=== PATIENT | female | born 1960 | race Caucasian/White ===

== ENCOUNTER → 2016-09-12 | Outpatient (CLI) | payer OTHER ==
[~2016-09-12] MED LIST: ASCA500 PO; CHOL200010 PO; CLON0.5T3 PO; ESOM20CA PO; MAGN250T22 PO; MULT-506 PO
--- NOTE | 2016-09-12 09:52 | DIAGNOSTIC IMAGING REPORT ---
CHEST 2 VIEWS ROUTINE CLINICAL HISTORY: Atypical chest pain COMPARISON STUDY: 03/25/2015 FINDINGS: The cardiac and mediastinal contours are normal. There is no evidence of focal pulmonary consolidation. There is no evidence of failure. No pleural effusions are visualized.[ IMPRESSION: No active disease in the chest. Electronically signed by: Augie Gillespie M.D. 09/12/2016 9:51 AM Dictated Date/Time: 09/12/2016 9:51 AM
== END | disposition home or self-care (01) ==
LOC: C.RADBC 09:37
PROVIDERS: ATTEND Family Medicine
DX: R07.89 Other chest pain (principal)

== ENCOUNTER 2016-10-24 08:18 | Emergency (ER) | payer OTHER ==
[~2016-10-24] VITALS: Ht 162.6 cm; Wt 87.0 kg
[~2016-10-24 08:18] MED LIST changes: -CHOL200010 PO; -CLON0.5T3 PO; -ESOM20CA PO
[2016-10-24 08:20] VITALS: TEMP 36.7; Ht 162.6 cm; Wt 87.0 kg
[2016-10-24] MEDS ORDERED: SODIUM CHLORIDE 0.9% 1000ML 1,000 ML IV STA (08:40)
[2016-10-24] MEDS ORDERED: CLON0.5T3 PO (08:42)
[2016-10-24] MEDS ORDERED: ESOM20CA PO (08:42)
--- NOTE | 2016-10-24 08:46 | EMERGENCY ROOM VISIT NOTE ---
History First contact with patient: 08:24 Chief Complaint: CHEST PAIN Stated Complaint: CHEST PAIN Nursing Triage Summary: Patient c/o left sided chest pain that goes into her back since yesterday. Patient increases with some movements. History of Present Illness The patient is a 55 year old female who presents to the Emergency Room with complaints of chest pain. The patient states that she developed chest pain yesterday morning. She states the pain is in the left side of the chest and radiates into her back and left side of the neck. The patient states the pain is constant. She states that this morning when she got up she could feel her heart pounding. The patient states that she has been physically active recently. She states she has also had worsening GERD. She has been taking Nexium. The patient rates her discomfort a 6/10. She denies any fevers, chills , earache, sore throat or cough. She denies any abdominal pain, nausea or vomiting. She denies any numbness, tingling or weakness. The patient has had a normal stress test approximately 2 years ago. Review of Systems A 10 system review of systems was completed with positives and pertinent negatives listed in the HPI. Past Medical/Surgical History Medical Problems: (1) GERD (gastroesophageal reflux disease) (2) Ulcer Surgical Problems: (1) History of hysterectomy (2) History of removal of both ovaries (3) History of tonsillectomy Family History Diabetes mellitus FH: cancer FH: heart disease Hypertension Kidney stones Social History Smoking Status: Former Smoker Marital Status: Housing Status: lives with family Occupation Status: employed Current/Historical Medications Scheduled Cholecalciferol (Vitamin D), 5,000 UNIT PO DAILY Clonazepam (Klonopin), 0.25 MG PO UD Esomeprazole Magnesium (Nexium), 20 MG PO DAILY Allergies Uncoded Allergies: enviromental (Allergy, Unknown, , 10/24/16) Physical Exam Vital Signs Date Time Temp Pulse Resp B/P Pulse Ox O2 Delivery O2 Flow Rate FiO2 10/24/16 12:42 85 16 127/62 94 10/24/16 12:21 87 10/24/16 12:20 85 16 127/62 94 Room Air 10/24/16 10:35 67 20 103/94 97 Room Air 10/24/16 09:35 68 19 123/100 100 Room Air 10/24/16 08:32 81 10/24/16 08:20 36.7 107 16 142/88 100 Room Air Physical Exam VITALS: Vitals are noted on the nurse's note and reviewed by myself. Vital signs stable. The patient is afebrile. GENERAL: This is a 55-year-old female, in no acute distress, nondiaphoretic, well-developed well-nourished. SKIN: The skin was without rashes, erythema, edema, or bruising. There is no tenting of the skin. Capillary reflex less than 2 seconds. HEAD: Normocephalic atraumatic. EARS: External auditory canals clear, tympanic membranes pearly glasgow without erythema or effusion bilaterally. EYES: Pupils equal round and reactive to light and accommodation. Conjunctivae without injection, sclerae without icterus. Extraocular movements intact. NOSE: Patent, turbinates without inflammation or discharge. MOUTH: Mucous membranes moist. Tonsils are not enlarged. Pharynx without erythema or exudate. Uvula midline. Airway patent. Tongue does not deviate. NECK: Supple without nuchal rigidity. No lymphadenopathy. No thyromegaly. Cervical spine is nontender. No JVD. HEART: Regular rate and rhythm without murmurs gallops or rubs. Mild tenderness to palpation of chest wall. LUNGS: Clear to auscultation bilaterally without wheezes, rales or rhonchi. No retractions or accessory muscle use. ABDOMEN: Positive bowel sounds x 4. Soft, nontender, without masses or organomegaly. MUSCULOSKELETAL: No muscle atrophy, erythema, or edema noted. Full range of motion in all extremities. Normal gait. Strength 5/5 throughout. NEURO: Patient was alert and oriented to person place and time. No focal neurological deficits. Medical Decision & Procedures ER Provider Diagnostic Interpretation: [~ rep ct add3]] CHEST ONE VIEW PORTABLE CLINICAL HISTORY: chest pain dyspnea COMPARISON STUDY: 09/12/2016 FINDINGS: The bones soft tissues and hemidiaphragms are normal. The cardiomediastinal silhouette is normal. The lungs are clear. The pulmonary vasculature is normal. IMPRESSION: Negative chest. Laboratory Results 10/24/16 08:36 Red Blood Count 5.06, Mean Corpuscular Volume 84.2, Mean Corpuscular Hemoglobin 29.8, Mean Corpuscular Hemoglobin Concent 35.4, Mean Platelet Volume 10.1, Neutrophils (%) (Auto) 55.3, Lymphocytes (%) (Auto) 34.7, Monocytes (%) (Auto) 7.8, Eosinophils (%) (Auto) 1.8, Basophils (%) (Auto) 0.2, Neutrophils # (Auto) 3.05, Lymphocytes # (Auto) 1.91, Monocytes # (Auto) 0.43, Eosinophils # (Auto) 0.10, Basophils # (Auto) 0.01 10/24/16 08:36 Test 10/24/16 08:36 10/24/16 10:13 10/24/16 10:52 White Blood Count 5.51 K/uL (4.8-10.8) Red Blood Count 5.06 M/uL (4.2-5.4) Hemoglobin 15.1 g/dL (12.0-16.0) Hematocrit 42.6 % (37-47) Mean Corpuscular Volume 84.2 fL (80-100) Mean Corpuscular Hemoglobin 29.8 pg (25-34) Mean Corpuscular Hemoglobin Concent 35.4 g/dl (32-36) Platelet Count 226 K/uL (130-400) Mean Platelet Volume 10.1 fL (7.4-10.4) Neutrophils (%) (Auto) 55.3 % Lymphocytes (%) (Auto) 34.7 % Monocytes (%) (Auto) 7.8 % Eosinophils (%) (Auto) 1.8 % Basophils (%) (Auto) 0.2 % Neutrophils # (Auto) 3.05 K/uL (1.4-6.5) Lymphocytes # (Auto) 1.91 K/uL (1.2-3.4) Monocytes # (Auto) 0.43 K/uL (0.11-0.59) Eosinophils # (Auto) 0.10 K/uL (0-0.5) Basophils # (Auto) 0.01 K/uL (0-0.2) RDW Standard Deviation 37.8 fL (36.4-46.3) RDW Coefficient of Variation 12.5 % (11.5-14.5) Immature Granulocyte % (Auto) 0.2 % Immature Granulocyte # (Auto) 0.01 K/uL (0.00-0.02) Prothrombin Time 10.4 SECONDS (9.0-12.0) Prothromb Time International Ratio 1.0 (0.9-1.1) Activated Partial Thromboplast Time 27.8 SECONDS (21.0-31.0) Partial Thromboplastin Ratio 1.1 Anion Gap 9.0 mmol/L (3-11) Est Creatinine Clear Calc Drug Dose 76.3 ml/min Estimated GFR () 84.6 Estimated GFR (Non- 73.0 BUN/Creatinine Ratio 18.1 (10-20) Calcium Level 9.3 mg/dl (8.5-10.1) Total Bilirubin 0.5 mg/dl (0.2-1) Aspartate Amino Transf (AST/SGOT) 19 U/L (15-37) Alanine Aminotransferase (ALT/SGPT) 48 U/L (12-78) Alkaline Phosphatase 95 U/L (45-117) Troponin I < 0.015 ng/ml (0-0.045) Total Protein 7.7 gm/dl (6.4-8.2) Albumin 4.2 gm/dl (3.4-5.0) Globulin 3.5 gm/dl (2.5-4.0) Albumin/Globulin Ratio 1.2 (0.9-2) Lipase 93 U/L (73-393) Thyroid Stimulating Hormone (TSH) 1.860 uIu/ml (0.300-4.500) Bedside Troponin I 0.000 ng/ml (0-0.045) Urine Color YELLOW Urine Appearance CLEAR (CLEAR) Urine pH 6.0 (4.5-7.5) Urine Specific Britt 1.010 (1.000-1.030) Urine Protein NEG (NEG) Urine Glucose (UA) NEG (NEG) Urine Ketones NEG (NEG) Urine Occult Blood NEG (NEG) Urine Nitrite NEG (NEG) Urine Bilirubin NEG (NEG) Urine Urobilinogen NEG (NEG) Urine Leukocyte Esterase TRACE (NEG) Urine WBC (Auto) 1-5 /hpf (0-5) Urine RBC (Auto) 0-4 /hpf (0-4) Urine Hyaline Casts (Auto) 0 /lpf (0-5) Urine Epithelial Cells (Auto) 10-20 /lpf (0-5) Urine Bacteria (Auto) NEG (NEG) Medications Administered Medications (Trade) Dose Ordered Sig/Arturo Route Start Time Stop Time Status Last Admin Dose Admin Sodium Chloride (Nss 1000ml) 1,000 ml @ 999 mls/hr Q1H1M STAT IV 10/24/16 08:40 10/24/16 09:40 DC 10/24/16 08:45 999 MLS/HR Procedure The patient was monitored on a youth nutritional monitor. They maintained a normal sinus rhythm without ectopy. ECG Indication: chest pain Rate (beats per minute): 77 Rhythm: normal sinus Findings: no acute ischemic change Change: no significant change ED Course The patient was seen and examined. Previous visits were reviewed. The patient does not have a fever or leukocytosis. She does not have any significant electrolyte abnormality. Troponin and 90 minute troponin were negative. Lipase was not elevated. TSH was within normal limits. INR is 1.0. Urinalysis suggests contamination. Chest x-ray does not reveal any acute abnormality The patient was hydrated with normal saline. The patient has had left-sided chest pain that radiates into her neck and back. The pain is reproducible with palpation but not with movement. The patient reports a family history of cardiac disease. Given the fact that the pain started yesterday, has been constant and she has had negative troponin this is less likely to represent cardiac chest pain. I suspect this may be musculoskeletal in nature. The patient however was advised to have very close follow-up. The patient was concerned with the chest pain and her family's history. I did briefly speak with Dr. Adams for possible stress test. The patient was sent for stress echocardiogram which was negative. The patient should contact her family doctor to schedule a follow-up appointment for further evaluation and management. She should return with any worsening symptoms. The case was discussed with Dr. Camp who agrees with the assessment and treatment plan Medical Decision DIFFERENTIAL DIAGNOSIS: Aortic dissection, myocarditis, pericarditis, cervical disc disease, costochondritis, herpes zoster, rib fracture, pleuritis, pneumonia , pulmonary embolus, tension pneumothorax, anxiety disorder, somatoform disorder , choledocholithiasis, status, esophagitis, esophageal spasm, esophageal reflux , esophageal rupture, pancreatitis, peptic ulcer disease, cardiac ischemia, ST elevation [place], acute coronary syndrome, arrhythmia, coronary artery vasospasm. vavular heart disease, coronary artery disease, among others. Impression Primary Impression: Substernal precordial chest pain Additional Impression: Chest wall pain Departure Information Dispostion Home / Self-Care Condition GOOD Referrals Kiko, Raul R., DO (PCP) Patient Instructions ED Strain Chest Wall, [facility] Additional Instructions Motrin 600mg every 6-8 hours for pain/inflammation for the next 5-7 days Avoid vigorous activity for the next 5-7 days Contact your family doctor for further evaluation and management Return with worsening symptoms Problem Qualifiers
[2016-10-24 08:55] LABS: BASO % 0.2 %; BASO ABS # 0.01 K/uL (0-0.2); COMPLETE YES; EOS % 1.8 %; HEMATOCRIT 42.6 % (37-47); IG% 0.2 %; LYMPH % 34.7 %; LYMPH ABS # 1.91 K/uL (1.2-3.4); MEAN CELL VOLUME 84.2 fL (80-100); MEAN CORPUSCULAR HEMOGLOBIN 29.8 pg (25-34); MEAN CORPUSCULAR HGB CONC 35.4 g/dl (32-36); MEAN PLATELET VOLUME 10.1 fL (7.4-10.4); MONO % 7.8 %; NEUT % 55.3 %; PLATELET COUNT 226 K/uL (130-400); RED BLOOD COUNT 5.06 M/uL (4.2-5.4); WHITE BLOOD COUNT 5.51 K/uL (4.8-10.8)
[2016-10-24 09:05] LABS: PARTIAL THROMBOPLASTIN RATIO 1.1; PROTHROMBIN TIME (PATIENT) 10.4 SECONDS (9.0-12.0)
--- NOTE | 2016-10-24 09:05 | DIAGNOSTIC IMAGING REPORT ---
CHEST ONE VIEW PORTABLE CLINICAL HISTORY: chest pain dyspnea COMPARISON STUDY: 09/12/2016 FINDINGS: The bones soft tissues and hemidiaphragms are normal. The cardiomediastinal silhouette is normal. The lungs are clear. The pulmonary vasculature is normal. IMPRESSION: Negative chest. Electronically signed by: Eric Gregory M.D. 10/24/2016 9:04 AM Dictated Date/Time: 10/24/2016 9:04 AM
[2016-10-24 09:10] LABS: ALT/SGPT 48 U/L (12-78); BLOOD UREA NITROGEN 16 mg/dl (7-18); BUN/CREATININE RATIO 18.1 (10-20); CALCIUM 9.3 mg/dl (8.5-10.1); CARBON DIOXIDE 28 mmol/L (21-32); CHLORIDE 103 mmol/L (98-107); CREATININE 0.89 mg/dl (0.60-1.20); GLUCOSE 98 mg/dl (70-99); POTASSIUM 4.1 mmol/L (3.5-5.1); SODIUM 140 mmol/L (136-145)
[2016-10-24 09:20] LABS: ALB/GLOB RATIO 1.2 (0.9-2); ALKALINE PHOSPHATASE 95 U/L (45-117); AST/SGOT 19 U/L (15-37)
[2016-10-24 11:59] LABS: URINE APPEARANCE CLEAR (CLEAR); URINE BILIRUBIN NEG (NEG); URINE COLOR YELLOW; URINE NITRITE NEG (NEG); UROBILINOGEN NEG (NEG); ZZUR CULT IF INDIC CLEAN CATCH NO
[2016-10-24 12:12] LABS: MANUAL MICROSCOPIC REQUIRED? NO; REVIEW REQ? NO
--- NOTE | 2016-10-24 12:40 | EXERCISE STRESS ECHO ---
*NOTICE TO RECEIVING CONSTITUTION PARTY AGENCY This information is strictly Confidential and protected under [place] law. [place] law prohibits you from making any further disclosure of this information unless further disclosure is expressly permitted by the written consent of the person to whom it pertains or is authorized by law. A general authorization for the release of medical or other information is not sufficient for this purpose. Hospital accepts no responsibility if the information is made available to any other person, INCLUDING THE PATIENT. Interpretation Summary * Name: SANTIAGO FRYE Study Date: 10/24/2016 10:56 AM BP: 121/76 mmHg * Patient Location: ED HR: 67 * : 1960 (M/d/yyyy) Gender: Female Height: 64 in * Age: 55 yrs Ethnicity: CA Weight: 191 lb * Ordering Physician: Laure Leone * Performed By: Sneha Toney * * Reason For Study: Chest pain * BSA: 1.9 m2 * -- Conclusions -- * Normal stess echocardiogram at 10.1 METS and a peak heart rate of 96% maximum predicted. * No exercise induced chest pain. * No ECG changes. * Baseline echocardiogram notes normal left ventricular systolic function without wall motion abnormalities. Procedure Details * ECHOEX, CPT #73266 * A contrast injection of Definity was performed to improve assessment of LV function. * Contrast was injected into an intravenous site in the right arm. * One vial of Definity ultrasound contrast was diluted in normal saline to a total volume of 10 ml. A total of '4.5' ml of solution was administered during imaging. * Lot # [id number] of Definity utilized for procedure. * Expiration date 11/08. * The attending nurse who injected the contrast agent was DIANE MIGUEL RN. Left Ventricle * Left ventricular systolic function is normal. * Resting wall motion: Normal. Stress wall motion: Appropriate increase in Left ventricular systolic function and decrease in cavity size. No stress induced segmental wall motion abnormalities. Stress Parameters * Normal baseline electrocardiogram. * Stress ECG: No ST changes. No arrhythmias. * The stress portion of this study was personally supervised by the undersigned interpreting physician. * Rest heart rate was '67' BPM. * Rest blood pressure was '121/76' * Maximum heart rate achieved was 160 bpm. * Maximum heart rate was 96 % of maximum age-predicted heart rate. * Maximum blood pressure was '171/62' * Total exercise time was '8:00' * Maximum exercise MET level achieved was '10.1' METS * Maximum treadmill speed was '3.40' miles per hour. * Maximum treadmill elevation was '14.00'% grade. * Exercise was terminated due to 'target heart rate achieved.' * The patient exhibited chest pain during exercise. * Normal blood pressure response to exercise.
[2016-10-24 12:42] VITALS: BP 127/62; PULSE 85; O2SAT 94
[2016-10-24] MEDS ORDERED: CHOL200010 PO (20:06)
== END 2016-10-24 12:45 | disposition home or self-care (01) ==
LOC: C.EDB 08:19
DX: R07.2 Precordial pain (principal); R07.89 Other chest pain; Z87.891 Personal history of nicotine dependence

== ENCOUNTER → 2016-11-08 | Outpatient (CLI) | payer OTHER ==
[~2016-11-08] MED LIST changes: -ASCA500 PO; +CHOL200010 PO; +CLON0.5T3 PO; +ESOM20CA PO; -MAGN250T22 PO; -MULT-506 PO
--- NOTE | 2016-11-09 13:55 | MAMMOGRAPHY REPORT ---
BILATERAL DIGITAL SCREENING MAMMOGRAM TOMOSYNTHESIS WITH CAD: 11/08/2016 CLINICAL HISTORY: Routine screening. Patient has no complaints. TECHNIQUE: Breast tomosynthesis in addition to standard 2D mammography was performed. Current study was also evaluated with a Computer Aided Detection (CAD) system. COMPARISON: Comparison is made to exams dated: 10/08/2015 mammogram, 10/11/2013 mammogram, 04/10/2013 mammogram, 10/08/2012 mammogram, 10/01/2012 mammogram, and 10/08/2012 ultrasound - [facility]. BREAST COMPOSITION: There are scattered areas of fibroglandular density in both breasts. FINDINGS: There is stable nodularity in the breasts. Scattered stable benign-appearing rounded punc flood microcalcifications. No suspicious mass, architectural distortion or cluster of new, suspiciou s microcalcifications is seen. IMPRESSION: ACR BI-RADS CATEGORY 1: NEGATIVE There is no mammographic evidence of malignancy. A 1 year screening mammogram is recommended. The p atient will receive written notification of the results. Approximately 10% of breast cancers are not detected with mammography. A negative mammographic repor t should not delay biopsy if a clinically suggestive mass is present. Kassie Lynch M.D. ay/:11/08/2016 17:55:44 [employer] And [employer] Supervisor: Geovanna STRAUSS)([place]), [facility] letter sent: Normal 1/2 BI-RADS Code: ACR BI-RADS Category 1: Negative
== END | disposition home or self-care (01) ==
LOC: C.MAMM 09:33
PROVIDERS: ATTEND Obstetrics & Gynecology
DX: Z12.31 Encounter for screening mammogram for malignant neoplasm of breast (principal)

== ENCOUNTER → 2017-01-25 | Day surgery (SDC) | payer OTHER ==
[2017-01-17 08:02] VITALS: Ht 162.6 cm; Wt 84.1 kg
[~2017-01-25] VITALS: Ht 162.6 cm; Wt 84.1 kg
[~2017-01-25] MED LIST changes: +LIDOCAINE HCL 2% 2 ML VIAL (20MG/ML) ONE; +PHENYLEPHRINE HCL INJ 10 MG/ML VIAL ONE; +PROPOFOL IV EMULSION 10 MG/ML 20 ML VIAL IV ONE; +SODIUM CHLORIDE 0.9% 500ML 500 ML IV ONE
--- NOTE | 2017-01-25 13:46 | Endo History and Physical ---
History & Physical Date of Service: Jan 25, 2017. Chief Complaint: GERD Referring Physician: Dr. Raul Hoover History of Present Illness 56 yo CF who presents for EGD secondary to GERD. Past Surgical History Hx Cardiac Surgery: No Hx Internal Defibrillator: No Hx Pacemaker: No Hx Abdominal Surgery: Yes (HYSTERECTOMY (2003); BL OOPHORECTOMY (04/2012)) Hx Post-Op Nausea and Vomiting: No Hx Cancer Surgery: No Hx Thoracic Surgery: No Hx Orthopedic: No Hx Urinary Tract Surgery: No Family History None Social History Smoking Status: Never Smoker Hx Substance Use: No Hx Alcohol Use: Yes (2 to 3 drinks a week) Allergies Coded Allergies: NO KNOWN DRUG ALLERGIES (Verified Allergy, Mild, ., 01/17/17) Uncoded Allergies: enviromental (Allergy, Unknown, , 10/24/16) Current Medications Reported Home Medications Medications Dose Route/Sig Max Daily Dose Days Date Category Klonopin (Clonazepam) 0.5 Mg Tab 0.25 Mg PO BID 10/24/16 Reported Nexium (Esomeprazole Magnesium) 20 Mg Capcr 20 Mg PO QAM 10/24/16 Reported Vitamin D (Cholecalciferol) 2,000 Unit Cap 5,000 Unit PO QAM 02/11/14 Reported Vital Signs Weight (Kilograms): 84.09 Height (Feet): 5 Height (Inches): 4 Date Time Temp Pulse Resp B/P (MAP) Pulse Ox O2 Delivery O2 Flow Rate FiO2 01/25/17 13:35 36.7 97 18 139/75 (96) 100 Room Air Physical Exam General Appearance: WD/WN, no apparent distress Respiratory/Chest: Auscultation: breath sounds normal Cardiovascular: Heart Auscultation: RRR Abdomen: Bowel Sounds: normal Inspection & Palpation: soft, non-distended, no tenderness, guarding & rebound Assessment and Plan Assessment: 56 yo CF who presents for EGD secondary to GERD. Plan: Proceed with EGD.
--- NOTE | 2017-01-25 14:29 | Discharge Instructions ---
Endoscopy Patient Instructions Date / Procedure(s) Performed Jan 25, 2017. EGD Allergy Information Coded Allergies: NO KNOWN DRUG ALLERGIES (Verified Allergy, Mild, ., 01/17/17) Uncoded Allergies: enviromental (Allergy, Unknown, , 10/24/16) Discharge Date / Findings Jan 25, 2017. Hiatal hernia Medication Instructions OK to resume all medications today as prescribed Reported Home Medications Medications Dose Route/Sig Max Daily Dose Days Date Category Klonopin (Clonazepam) 0.5 Mg Tab 0.25 Mg PO BID 10/24/16 Reported Nexium (Esomeprazole Magnesium) 20 Mg Capcr 20 Mg PO QAM 10/24/16 Reported Vitamin D (Cholecalciferol) 2,000 Unit Cap 5,000 Unit PO QAM 02/11/14 Reported Provider Instructions Activity Restrictions - No exercising or heavy lifting for 24 hours. - Do not drink alcohol the day of the procedure. - Do not drive a car or operate machinery until the day after the procedure. - Do not make any important decisions or sign important papers in 24 hours after the procedure. Following Day: - Return to full activity which may include returning to work/school. Diet Start your diet with liquids and light foods (jello, soup, juice, toast). Then eat your usual diet if not nauseated. Treatment For Common After Affects For mild abdominal pain, bloating, or excessive gas: - Rest - Eat lightly - Lie on right side Follow-Up Information Follow-up with Dr. Raul Hoover as scheduled Anesthesia Information What You Should Know You have had a procedure that required some medicine to reduce anxiety and discomfort. This treatment is called moderate sedation. After receiving the treatment, you may be sleepy, but you will be able to breathe on your own. The effects of the treatment may last for several hours. Follow these instructions along with Activity/Diet recommendations noted above: * Do NOT do anything where dizziness or clumsiness would be dangerous. * Rest quietly at home today, then you can be up and about tomorrow. * Have a responsible person stay with you the rest of today. * You may have had an I.V. today. If so, you may take the dressing off later today. Recommendations Call your doctor if: * Trouble breathing * Continuous vomiting for more than 24 hours * Temperature above 101 degrees * Severe abdominal pain or bloating * Pain not relieved by pain medicine ordered * There is increased drainage or redness from any incision * A large amount of rectal bleeding greater than 2-3 tablespoons. (If you had a polyp/s removed or have hemorrhoids, a small amount of blood - from the rectum is to be expected.) * You have any unanswered questions or concerns. IN THE EVENT OF A SERIOUS EMERGENCY, GO TO THE NEAREST EMERGENCY ROOM Your discharge instructions were prepared by provider Stevie Romero. Patient Instructions Signature Page Jenise Wilkins Patient (or Guardian) Signature/Date: I have read and understand the instructions given to me by my caregivers. Caregiver/RN/Doctor Signature/Date: The above-named patient and/or guardian has received patient instructions on this date. + Original Patient Signature Page (only) stays with chart. Please make copy for patient.
--- NOTE | 2017-01-25 14:31 | Anesthesiology Progress Note ---
Anesthesia Post Op Note Date & Time Jan 25, 2017 at 14:31 Vital Signs Pain Intensity: 0 Vital Signs Past 12 Hours Date Time Temp Pulse Resp B/P (MAP) Pulse Ox O2 Delivery O2 Flow Rate FiO2 01/25/17 13:35 36.7 97 18 139/75 (96) 100 Room Air Notes Mental Status: alert / awake / arousable, participated in evaluation Pt Amnestic to Procedure: Yes Nausea / Vomiting: adequately controlled Pain: adequately controlled Airway Patency, RR, SpO2: stable & adequate BP & HR: stable & adequate Hydration State: stable & adequate Anesthetic Complications: no major complications apparent
--- NOTE | 2017-01-25 14:39 | GI REPORT ---
Procedure Date: 01/25/2017 1:51 PM Procedure: Upper GI endoscopy Indications: Follow-up of gastro-esophageal reflux disease Medicines: Monitored Anesthesia Care Complications: No immediate complications. Estimated Blood Loss: Estimated blood loss: none. Procedure: Pre-Anesthesia Assessment: - Prior to the procedure, a History and Physical was performed, and patient medications and allergies were reviewed. The patient's tolerance of previous anesthesia was also reviewed. The risks and benefits of the procedure and the sedation options and risks were discussed with the patient. All questions were answered, and informed consent was obtained. Prior Anticoagulants: The patient has taken no previous anticoagulant or antiplatelet agents. ASA Grade Assessment: II - A patient with mild systemic disease. After reviewing the risks and benefits, the patient was deemed in satisfactory condition to undergo the procedure. After obtaining informed consent, the endoscope was passed under direct vision. Throughout the procedure, the patient's blood pressure, pulse, and oxygen saturations were monitored continuously. The scope was introduced through the mouth, and advanced to the second part of duodenum. The upper GI endoscopy was accomplished without difficulty. The patient tolerated the procedure well. Findings: The examined esophagus was normal. A large hiatus hernia was present. The examined duodenum was normal. Impression: - Normal esophagus. - Large hiatus hernia. - Normal examined duodenum. - No specimens collected. Recommendation: - Resume previous diet. - Continue present medications. - Do an upper GI series at appointment to be scheduled. - Return to GI office as previously scheduled. Stevie Romero, 01/25/2017 2:38:27 PM This report has been signed electronically. Note Initiated On: 01/25/2017 1:51 PM I attest to the content of the Intraoperative Record and orders documented therein, exceptions below
[2017-01-25 15:05] VITALS: BP 139/75; PULSE 69; O2SAT 97
== END | disposition home or self-care (01) ==
LOC: C.GI 13:16
PROVIDERS: ATTEND Internal Medicine
DX: K44.9 Diaphragmatic hernia without obstruction or gangrene (principal); K21.9 Gastro-esophageal reflux disease without esophagitis; Z79.899 Other long term (current) drug therapy

== ENCOUNTER → 2017-01-30 | Outpatient (CLI) | payer OTHER ==
[~2017-01-30] MED LIST changes: -LIDOCAINE HCL 2% 2 ML VIAL (20MG/ML) ONE; -PHENYLEPHRINE HCL INJ 10 MG/ML VIAL ONE; -PROPOFOL IV EMULSION 10 MG/ML 20 ML VIAL IV ONE; -SODIUM CHLORIDE 0.9% 500ML 500 ML IV ONE
--- NOTE | 2017-01-30 11:21 | DIAGNOSTIC IMAGING REPORT ---
(BARIUM SWALLOW) ESOPHAGUS CLINICAL HISTORY: 56 years-old Female presenting with diaphragmatic hernia, reported hiatal hernia and inflammation on endoscopy 1 week ago. TECHNIQUE: A standard air contrast barium esophagram is performed. Multiple spot images of the esophagus are acquired both upright and prone. COMPARISON: Upper GI from 04/03/2006. FINDINGS: The patient was able to ingest barium but unable to ingest the barium pill. No aspiration observed. Normal passage of the oral contrast through the esophagus into the stomach. Normal esophageal mucosal pattern. No evidence of intrinsic or extrinsic mass lesion. Small sliding hiatal hernia. The gastroesophageal junction distended normally. No gastroesophageal reflux observed. Fluoroscopy time: 1.1 minutes. Fluoroscopic images: 24. IMPRESSION: 1. Small hiatal hernia. 2. No aspiration or other abnormality. The patient was unable to ingest the barium pill for assessment of passage. Electronically signed by: Dimas Martin 01/30/2017 11:20 AM Dictated Date/Time: 01/30/2017 11:17 AM
== END | disposition home or self-care (01) ==
LOC: C.RAD 10:39
PROVIDERS: ATTEND Internal Medicine
DX: K44.9 Diaphragmatic hernia without obstruction or gangrene (principal)

== ENCOUNTER → 2017-11-14 | Outpatient (CLI) | payer OTHER ==
--- NOTE | 2017-11-15 15:29 | MAMMOGRAPHY REPORT ---
BILATERAL DIGITAL SCREENING MAMMOGRAM TOMOSYNTHESIS WITH CAD: 11/14/2017 CLINICAL HISTORY: Routine screening. TECHNIQUE: Breast tomosynthesis in addition to standard 2D mammography was performed. Current study was also evaluated with a Computer Aided Detection (CAD) system. COMPARISON: Comparison is made to exams dated: 11/08/2016 mammogram, 10/08/2015 mammogram, 10/11/2013 m ammogram, 10/01/2012 mammogram, 09/26/2011 mammogram, and 06/22/2010 mammogram - [facility] enter. BREAST COMPOSITION: There are scattered areas of fibroglandular density in both breasts. FINDINGS: There have been involutional changes comparing to more remote prior mammograms. There are scattered stable benign-appearing round and punctate microcalcifications in the breasts. Morphologic ally normal lymph nodes are seen projecting over each pectoralis muscle on the MLO views, which appea rs stable in size comparing to prior mammograms. No new suspicious mass, architectural distortion or cluster of microcalcifications is seen. IMPRESSION: ACR BI-RADS CATEGORY 1: NEGATIVE There is no mammographic evidence of malignancy. A 1 year screening mammogram is recommended. The pa tient will receive written notification of the results. Approximately 10% of breast cancers are not detected with mammography. A negative mammographic report should not delay biopsy if a clinically suggestive mass is present. Kassie Lynch M.D. ay/:11/14/2017 16:00:41 [employer] Telephone Clerk: Zaria LOMBARDO(Sheila)(Mele), [facility] letter sent: Normal 1/2 BI-RADS Code: ACR BI-RADS Category 1: Negative
== END | disposition home or self-care (01) ==
LOC: C.MAMM 09:35
PROVIDERS: ATTEND Obstetrics & Gynecology
DX: Z12.31 Encounter for screening mammogram for malignant neoplasm of breast (principal)

== ENCOUNTER → 2018-02-20 | Outpatient (CLI) | payer OTHER ==
[~2018-02-20] MED LIST changes: -CHOL200010 PO; -CLON0.5T3 PO; +ERGO500037 PO; -ESOM20CA PO; +KETO10TA PO; +KLN/5 PO; +OXYC-57 PO
[2018-02-20 10:10] LABS: BASO % 0.2 %; BASO ABS # 0.01 K/uL (0-0.2); EOS % 2.3 %; EOS ABS # 0.11 K/uL (0-0.5); HEMATOCRIT 44.8 % (37-47); HEMOGLOBIN 15.1 g/dL (12.0-16.0); IG# 0.01 K/uL (0.00-0.02); LYMPH ABS # 1.83 K/uL (1.2-3.4); MEAN CELL VOLUME 85.2 fL (80-100); MEAN CORPUSCULAR HEMOGLOBIN 28.7 pg (25-34); MEAN CORPUSCULAR HGB CONC 33.7 g/dl (32-36); MEAN PLATELET VOLUME 10.2 fL (7.4-10.4); MONO % 8.1 %; MONO ABS # 0.38 K/uL (0.11-0.59); NEUT % 50.2 %; NEUT ABS # 2.35 K/uL (1.4-6.5); PLATELET COUNT 232 K/uL (130-400); RED CELL DISTRIBUTION WIDTH CV 12.9 % (11.5-14.5); WHITE BLOOD COUNT 4.69 K/uL (4.8-10.8)
[2018-02-20 10:36] LABS: BLOOD UREA NITROGEN 16 mg/dl (7-18); CALCIUM 9.6 mg/dl (8.5-10.1); CARBON DIOXIDE 28 mmol/L (21-32); CREATININE 0.79 mg/dl (0.60-1.20); GLUCOSE 95 mg/dl (70-99); POTASSIUM 4.5 mmol/L (3.5-5.1); SODIUM 141 mmol/L (136-145)
== END | disposition home or self-care (01) ==
LOC: C.CPL 09:12
PROVIDERS: ATTEND Orthopaedic Surgery
DX: M75.00 Adhesive capsulitis of unspecified shoulder (principal)

== ENCOUNTER → 2018-02-22 | Day surgery (SDC) | payer OTHER ==
[2018-02-12 12:24] VITALS: Ht 163.8 cm; Wt 81.8 kg
[~2018-02-22] VITALS: Ht 163.8 cm; Wt 81.8 kg
[~2018-02-22] MED LIST changes: +ATROPINE SULFATE 0.1 MG/ML 5ML SYR IV PRN; +BUPIVACAINE 0.25% 30 ML VIAL ONE; +CEFAZOLIN 2000MG IV PUSH 15 ML IV SCH; +DEXAMETHASONE SOD INJ 4 MG/ML VIAL ONE; +EpHEDrine SULFATE INJ 50 MG/ML AMP IV PRN; +EpINEphrine INJ 1MG/ML AMP 1 MG/ML AMP ONE; +FENTANYL CITRATE INJ 50 MCG/1 ML 2 ML VIAL IV PRN; +FENTANYL CITRATE INJ 50 MCG/1 ML 2 ML VIAL ONE; +HYDROmorphone INJ 1 MG/ML SYR IV PRN; +KETOROLAC TROMETHAMINE 30 MG/ML VIAL IV. PRN; +LACTATED RINGER'S 1000ML 1,000 ML IV SCH; +LIDOCAINE HCL 2% 2 ML VIAL (20MG/ML) ONE; +METHYLPREDNISOLONE ACETATE 80 MG/ML VIAL ONE; +MIDAZOLAM HCL 1 MG/ML 2ML VIAL ONE; +ONDANSETRON INJ 2 MG/ML 2 ML VIAL IV PRN; +ONDANSETRON INJ 2 MG/ML 2 ML VIAL ONE; +OXYCODONE/ACETAMINOPHEN 5-325 TAB PO PRN; +PHENYLEPHRINE 100MCG/ML 5ML SYR IV PRN; +PROMETHAZINE HCL INJ 12.5 MG in SODIUM CHLORIDE 0.9% 50ML 50 ML IV PRN; +PROPOFOL IV EMULSION 10 MG/ML 20 ML VIAL ONE; +ROPIVACAINE 0.5% 5 MG/ML 30 ML VIAL ONE; +SODIUM CHLORIDE 0.9% 1000ML 1,000 ML IV SCH
--- NOTE | 2018-02-22 10:27 | History & Physical Bridge - SC ---
H&P Re-Evaluation Bridge Note: I have examined the patient, reviewed the History & Physical and in the interval since the performance of the History & Physical I have noted the following changes of clinical significance: No changes noted
--- NOTE | 2018-02-22 12:36 | [facility] Post Operative Brief Note ---
Immediate Operative Summary Operative Date Feb 22, 2018. Pre-Operative Diagnosis Right shoulder adhesive capsulitis Post-Operative Diagnosis Same as preop Procedure(s) Performed Right Shoudler Arthroscopy With Capsular Release Surgeon Dr. Coronel Station Attendant Surgeon(s) Leroy Rodriguez PA-C Estimated Blood Loss 5 mL Findings Consistent with Post-Op Diagnosis Specimens None Anesthesia Type General [facility]
--- NOTE | 2018-02-22 12:45 | Discharge Instructions-SurgCtr ---
Discharge Instructions Date of Service Feb 22, 2018. Visit Reason for Visit: Right Shoulder Adhesive Capsulitis Discharge Discharge Diagnosis / Problem: SAME ABOVE Discharge Goals Goal(s): Decrease discomfort, Improve function Activity Recommendations Activity Limitations: as noted below Lifting Limitations: until after follow-up appointment Shower/Bathe: tomorrow Anesthesia . Post Anesthesia Instructions: If you have had General Anesthesia or IV Sedation: * Do not drive today. * Resume driving when surgeon permits. * Do not make important decisions or sign legal documents today. * Call surgeon for: 1. Temperature elevations greater than 101 degrees F. 2. Uncontrollable pain. 3. Excessive bleeding. 4. Persistent nausea and vomiting. 5. Medication intolerance (nausea, vomiting or rash). * For nausea and vomiting use only clear liquids such as: tea, soda, bouillon until nausea subsides, then gradually increase diet as tolerated. * If you have any concerns or questions, call your surgeon's office. If physician is unavailable and it is an emergency, call 911 or go to the nearest emergency room. . Instructions / Follow-Up Instructions / Follow-Up MEDICATIONS: * Resume previous medications unless instructed otherwise by your surgeon. * Always take pain medication on a full stomach or with food to avoid upset stomach. * Do not drink alcohol or drive while taking narcotics. * Ibuprofen or Tylenol may be taken if narcotic not needed. SPECIAL CARE INSTRUCTIONS: __ None _X_ Keep extremity elevated and iced x 48 hours; apply ice 20-30 minutes 8-10 times/day. May remove at night. _X_ Sling (REMOVE AFTER 24 HOURS) __24 hrs/day __ Remove at night __ Shoulder Immobilizer __ 24 hrs/day __ Remove at night _X_ Dressing __ Maintain until seen in office, may shower with plastic over site _X_ Remove dressings in 24-48 hours and then may shower _X_ Cover incisions with band-aids after showering __ Do not remove steri-strips Call physician if chills or temperature rises above 102 degrees or pain unrelieved by prescribed pain medications at . . Diet Recommendations Home Diet: no limitations Fluid Restriction: None Procedures Procedures Performed: Right Shoudler Arthroscopy With Capsular Release Pending Studies Studies pending at discharge: no Work Instructions Return To Work: 3 days (OR WHEN PAIN IS CONTROLLED ) Medical Emergencies . Who to Call and When: Medical Emergencies: If at any time you feel your situation is an emergency, please call 911 immediately. . Non-Emergent Contact Non-Emergency issues call your: Surgeon Call Non-Emergent contact if: your pain is not controlled, your pain is worsening . . "Provider Documentation" section prepared by Leroy Rodriguez. .
[2018-02-22 13:28] VITALS: TEMP 36.4
--- NOTE | 2018-02-22 13:36 | Anesthesia Progress Nt - [facility] ---
Anesthesia Post Op Note Date & Time Feb 22, 2018 at 13:36 Vital Signs Pain Intensity: 0 Vital Signs Past 12 Hours Date Time Temp Pulse Resp B/P (MAP) Pulse Ox O2 Delivery O2 Flow Rate FiO2 02/22/18 13:21 67 8 117/65 99 02/22/18 13:21 68 8 02/22/18 13:19 36.2 68 12 117/65 100 Room Air 02/22/18 13:16 74 4 02/22/18 13:16 74 4 115/68 97 02/22/18 13:11 68 3 122/74 100 02/22/18 13:11 67 3 02/22/18 13:06 74 6 02/22/18 13:06 74 6 132/73 100 02/22/18 13:01 66 0 02/22/18 13:01 66 0 129/62 100 02/22/18 12:56 75 2 02/22/18 12:56 76 2 120/84 100 02/22/18 12:51 77 0 02/22/18 12:51 78 0 116/79 100 02/22/18 12:47 128/75 02/22/18 12:46 87 9 02/22/18 12:46 86 9 100 02/22/18 12:45 137/74 02/22/18 12:43 36.3 95 12 137/74 100 Mask 5 02/22/18 12:05 0 02/22/18 12:01 118/65 02/22/18 12:00 77 02/22/18 12:00 74 11 99 02/22/18 11:56 120/68 02/22/18 11:55 88 100 02/22/18 11:55 88 02/22/18 11:51 132/83 02/22/18 11:50 78 0 02/22/18 11:45 83 0 02/22/18 11:40 90 0 02/22/18 11:35 77 0 02/22/18 11:30 79 0 02/22/18 11:25 84 0 02/22/18 11:20 84 0 02/22/18 11:15 82 0 02/22/18 11:10 84 0 02/22/18 11:05 84 0 02/22/18 11:00 85 0 02/22/18 10:55 85 0 02/22/18 10:50 86 0 02/22/18 10:45 88 0 02/22/18 10:40 82 27 02/22/18 10:40 27 02/22/18 09:59 36.5 102 20 120/94 (103) 96 Room Air Notes Mental Status: alert / awake / arousable, participated in evaluation Pt Amnestic to Procedure: Yes Nausea / Vomiting: adequately controlled Pain: adequately controlled Airway Patency, RR, SpO2: stable & adequate BP & HR: stable & adequate Hydration State: stable & adequate Anesthetic Complications: no major complications apparent
--- NOTE | 2018-02-22 13:53 | OPERATIVE REPORT ---
DATE OF OPERATION: 02/22/2018 PREOPERATIVE DIAGNOSIS: Adhesive capsulitis of the right shoulder. POSTOPERATIVE DIAGNOSIS: Adhesive capsulitis of the right shoulder. PROCEDURE: Right shoulder diagnostic arthroscopy with extensive debridement, lysis of adhesions and manipulation under anesthesia. SURGEON: Dr. Raul Coronel. KNAPSACK SPRAYER: Leroy Rodriguez PA-C, whose assistance was necessary for positioning the arm and help with instrumentation. ANESTHESIA: General with a right interscalene nerve block. COMPLICATIONS: None. CONDITION: Stable to PACU. INDICATIONS: Jenise is a pleasant 57-year-old female who presented to my office with chronic increasing right shoulder pain and tightness. MRI and clinical examination were diagnostic for adhesive capsulitis of the right shoulder. After failing conservative treatment, she elected to undergo capsular release. OPERATION AND FINDINGS: On 02/22/2018, she arrived at [facility] for the above procedure. She was seen in the preoperative holding area and the operative extremity was identified and signed. She was given a preoperative antibiotic and a right interscalene nerve block. She was taken back to the operating room, laid on the table in supine position and put under general anesthesia. The right shoulder was then prepped and draped in sterile fashion. Time-out was done and the patient's operative extremity was properly identified. On preoperative physical examination, she had about 80 degrees of abduction and 40 degrees of external rotation. A gentle manipulation was done under anesthesia to facilitate insertion of the arthroscope. The scope was then placed in the posterior portal. Diagnostic arthroscopy showed no cartilage damage to the humeral head or the glenoid. There was significant redness and tightness of the middle and inferior glenohumeral ligaments. The rotator interval looked okay. An anterior portal was made. A shaver was used to do a debridement of the intraarticular structures including fraying of the labrum and any loose capsular fragments. An ablator was then used to do a lysis of adhesions to include opening up the rotator interval and specifically the middle and anterior inferior glenohumeral ligaments. Time was spent ensuring not to disrupt the subscapularis or the axillary nerve. A shaver was then used to continue debridement and remove the release capsule back to stable margins. Arthroscopic instruments removed from the shoulder and manipulation was done under anesthesia. I was able to get full range of motion of the shoulder. The scope was switched back into the glenohumeral joint. Hemostasis was controlled. A final debridement was done to clean up any additional soft tissue remnants. A spinal needle was placed for an injection. Arthroscopic instruments were removed from the shoulder. Portal sites were closed with 3-0 nylon. The shoulder was then injected with 80 mg Depo-Medrol and 5 mL of Marcaine. She was then placed in a soft dressing and regular arm sling. She was then extubated, transferred to a [facility] and taken to the postanesthesia care unit in stable condition. She tolerated the procedure well. I attest to the content of the Intraoperative Record and any orders documented therein. Any exception s are noted below.
[2018-02-22 14:05] VITALS: BP 103/66; PULSE 73; O2SAT 98
== END | disposition home or self-care (01) ==
LOC: X.SURG 09:36
PROVIDERS: ATTEND Orthopaedic Surgery
DX: M75.01 Adhesive capsulitis of right shoulder (principal); E66.9 Obesity, unspecified; Z68.30 Body mass index [BMI] 30.0-30.9, adult